=== PATIENT | male | born 1960 | race Caucasian/White ===

== ENCOUNTER 2017-02-01 11:52 | Emergency (ER) | payer MEDICAID ==
[~2017-02-01] VITALS: Ht 165.1 cm; Wt 68.0 kg
[~2017-02-01 11:52] MED LIST: AMOXIL250 MG PO
[2017-02-01 12:05] VITALS: BP 133/73
--- NOTE | 2017-02-01 12:13 | NUR ---
PATIENT PRESENTS TO ED WITH FULL BODY PAIN, PATIENT HAS OPEN SORES ON BOTH LEGS, STATES HE HAS SCROTAL PAIN WELL, PATIENT STATES HE HAD LOOSE STOOLS YESTERDAY X 2 DENIES V/D; SKIN IS PINK/WARM/DRY; AAOX4 WITH EVEN AND STEADY GAIT; PT DENIES ANY FEVER, CP, SOB, OR COUGH AT THIS TIME; PATIENT STATES PAIN OF 10/10 AT THIS TIME; VSS; PATIENT POSITIONED FOR COMFORT; HOB ELEVATED; BEDRAILS UP X2; BED DOWN. ER MD MADE AWARE OF PT STATUS.
[2017-02-01] MEDS ORDERED: KETOROLAC 60 MG/2 ML VIAL IM ONE (12:35)
--- NOTE | 2017-02-01 13:00 | NUR ---
PATIENT BECOMING DISRUPTIVE IN THE ED, YELLING PROFANTIES, STATING HE WANTS RUBBING ALCOHOL RUBBED ON HIS LEGS, STATES WE CAN GIVE HIM ALCOHOL SWABS AND HE CAN RUB IT ON HIS OWN LEGS IF HE WANTS, SWABS PROVIDED SECURITY AT BEDSIDE.
[2017-02-01 13:18] VITALS: BP 127/91
--- NOTE | 2017-02-01 13:20 | NUR ---
Patient discharged with v/s stable. Written and verbal after care instructions given and explained. LOCAL MEDICAL CLINIC INFORMATION OF WHERE TO FOLLOW UP GIVEN Patient alert, oriented and verbalized understanding of instructions. Ambulatory with steady gait. All questions addressed prior to discharge. ID band removed. Patient advised to follow up with PMD. Rx of MOTRIN, NORCO, KEFLEX, BACTRIM given. Patient educated on indication of medication including possible reaction and side effects. Opportunity to ask questions provided and answered.
== END 2017-02-01 13:20 | disposition home or self-care (01) ==
LOC: MED 12:01
DX: L03.116 Cellulitis of left lower limb (principal); L03.115 Cellulitis of right lower limb; N49.2 Inflammatory disorders of scrotum
CPT/HCPCS: 96372; 99283; J1885

== ENCOUNTER 2017-10-06 04:05 | Emergency (ER) | payer MEDICAID ==
[~2017-10-06] VITALS: Ht 167.6 cm; Wt 72.6 kg
[2017-10-06 04:19] VITALS: BP 139/88
--- NOTE | 2017-10-06 04:39 | NUR ---
DR DUBOIS AT BEDSIDE EVALUATING PT.
[2017-10-06] MEDS ORDERED: KETOROLAC 60 MG/2 ML VIAL IM ONE (04:40)
--- NOTE | 2017-10-06 04:44 | NUR ---
56/ M PRESENTS TO ER C/O MOUTH/DENTAL PAIN, PAIN TO BL ARMS WITH LESIONS/RASH, PAIN TO NECK WITH RASH. PMH HEP. C, METH USE. PT STATES HE THINKS HE WAS BIT BY SOMETHING TO CAUSE RASH TO BL ARMS, MULTIPLE OPEN WOUNDS NOTED TO BL ARMS, NO ACTIVE BLEEDING NOTED AT THIS TIME. PT STATES PAIN TO UPPER MOUTH AREA A 10/10, SHARP AND NON RADIATING. RED RASH NOTED TO POSTERIOR NECK. PER PT HE HAS USED METH IN PAST, PT DENIES USE AT THIS TIME. ER MD NOTIFIED OF PT STATUS, PT IN BED AT THIS TIME, COMFORT NEEDS MET.
[2017-10-06 05:30] VITALS: BP 139/88
--- NOTE | 2017-10-06 05:31 | NUR ---
Patient discharged with v/s stable. Written and verbal after care instructions given and explained. Patient alert, oriented and verbalized understanding of instructions. Ambulatory with steady gait. All questions addressed prior to discharge. ID band removed. Patient advised to follow up with PMD. Rx of mupirocin 2% given. Patient educated on indication of medication including possible reaction and side effects. Opportunity to ask questions provided and answered.Pt given homeless packet.
== END 2017-10-06 05:31 | disposition home or self-care (01) ==
LOC: MED 04:05
DX: R21 Rash and other nonspecific skin eruption (principal); R51 Headache; K08.89 Other specified disorders of teeth and supporting structures; Z88.8 Allergy status to other drugs, medicaments and biological substances
CPT/HCPCS: 96372; 99283; J1885

== ENCOUNTER 2018-05-22 11:07 | Emergency (ER) | payer MEDICAID ==
[~2018-05-22] VITALS: Ht 165.1 cm; Wt 70.3 kg
[2018-05-22 11:12] VITALS: BP 133/99
--- NOTE | 2018-05-22 11:15 | NUR ---
PT AMBULATED TO ER BED 08
--- NOTE | 2018-05-22 11:20 | NUR ---
57Y/M BIB SELF C/O RT UPPER TOOTH PAIN X 1 DAY. HAS DENTIST APPOINTMENT ON 05/27/18. DENIES FEVER OR N/V.AAOX4 WITH EVEN AND STEADY GAIT; PATIENT STATES PAIN OF 10/10 AT THIS TIME; VSS; PATIENT POSITIONED FOR COMFORT; HOB ELEVATED; BEDRAILS UP X1; BED DOWN. ER MD MADE AWARE OF PT STATUS.
--- NOTE | 2018-05-22 11:30 | NUR ---
Patient being evaluated by physician at bedside.
--- NOTE | 2018-05-22 11:58 | NUR ---
Patient discharged with v/s stable. Written and verbal after care instructions given and explained. Patient alert, oriented and verbalized understanding of instructions. Ambulatory with steady gait. All questions addressed prior to discharge. ID band removed. Patient advised to follow up with PMD. Rx of MOTRIN, TORADOL AND AMOXICILLIN given. Patient educated on indication of medication including possible reaction and side effects. Opportunity to ask questions provided and answered.
[2018-05-22 11:59] VITALS: BP 122/94
== END 2018-05-22 11:58 | disposition home or self-care (01) ==
LOC: MED 11:07
DX: K04.7 Periapical abscess without sinus (principal); R03.0 Elevated blood-pressure reading, without diagnosis of hypertension; Z88.6 Allergy status to analgesic agent
CPT/HCPCS: 99283

== ENCOUNTER 2018-09-09 09:09 | Emergency (ER) | payer MEDICAID ==
[~2018-09-09] VITALS: Ht 165.1 cm; Wt 69.9 kg
[2018-09-09 09:24] VITALS: BP 119/95
[2018-09-09] MEDS ORDERED: KETOROLAC 30 MG/ML VIAL IM ONE (10:45)
[2018-09-09 11:09] VITALS: BP 139/99
== END 2018-09-09 11:10 | disposition home or self-care (01) ==
LOC: MED 09:09
DX: S02.5XXA Fracture of tooth (traumatic), initial encounter for closed fracture (principal); F41.9 Anxiety disorder, unspecified; F32.9 Major depressive disorder, single episode, unspecified; K21.9 Gastro-esophageal reflux disease without esophagitis; Z88.5 Allergy status to narcotic agent; Z88.6 Allergy status to analgesic agent; Z76.0 Encounter for issue of repeat prescription; X58.XXXA Exposure to other specified factors, initial encounter; Y93.89 Activity, other specified; Y92.89 Other specified places as the place of occurrence of the external cause; Y99.8 Other external cause status
CPT/HCPCS: 96372; 99283; J1885

== ENCOUNTER 2018-09-28 08:43 | Emergency (ER) | payer MEDICAID ==
[~2018-09-28] VITALS: Ht 165.1 cm; Wt 74.8 kg
--- NOTE | 2018-09-28 08:49 | NUR ---
PATIENT AMBULATED TO BED 5 AT THIS TIME.
[2018-09-28 08:50] VITALS: BP 148/71
--- NOTE | 2018-09-28 08:56 | NUR ---
PATIENT PRESENTS TO ED FOR MEDICATION FOR ANTI DEPRESSION; DENIES AUDITORY /VISSUAL HALLUCINATIONS; DENIES SI/ HI. PT WAS PRESCRIBED W/ ZOLOFT BUT STOPS TAKING IT. DENIES N/V/D;PT STATES I JUST WANT SOME MEDICINE BETTER THAN ZOLOFT;SAFETY PRECAUTION INSTITUTED;VSS; PATIENT POSITIONED FOR COMFORT; HOB ELEVATED; BEDRAILS UP X2; BED DOWN. ER MD MADE AWARE OF PT STATUS.
[2018-09-28 09:09] VITALS: BP 148/71
--- NOTE | 2018-09-28 09:09 | NUR ---
Patient discharged with v/s stable. Written and verbal after care instructions given and explained. Patient alert, oriented and verbalized understanding of instructions. Ambulatory with to car. All questions addressed prior to discharge. ID band removed. Patient advised to follow up with PMD. Rx of PROZAC AND VISTARIL given. Patient educated on indication of medication including possible reaction and side effects. Opportunity to ask questions provided and answered.
== END 2018-09-28 09:09 | disposition home or self-care (01) ==
LOC: MED 08:43
DX: F32.9 Major depressive disorder, single episode, unspecified (principal); F41.9 Anxiety disorder, unspecified; F17.200 Nicotine dependence, unspecified, uncomplicated; K21.9 Gastro-esophageal reflux disease without esophagitis; Z88.5 Allergy status to narcotic agent; Z88.6 Allergy status to analgesic agent
CPT/HCPCS: 99284

== ENCOUNTER 2018-10-10 12:10 | Emergency (ER) | payer MEDICAID ==
[~2018-10-10] VITALS: Ht 165.1 cm; Wt 71.0 kg
[2018-10-10 12:24] VITALS: BP 126/102
[2018-10-10 14:04] VITALS: BP 126/102
== END 2018-10-10 14:04 | disposition home or self-care (01) ==
LOC: MED 12:10
DX: F41.9 Anxiety disorder, unspecified (principal); K21.9 Gastro-esophageal reflux disease without esophagitis; Z76.0 Encounter for issue of repeat prescription; Z88.5 Allergy status to narcotic agent
CPT/HCPCS: 99283

== ENCOUNTER 2018-11-04 10:12 | Emergency (ER) | payer MEDICAID ==
[~2018-11-04] VITALS: Ht 165.1 cm; Wt 74.8 kg
--- NOTE | 2018-11-04 10:21 | NUR ---
PT AMBULATED TO ER BED 08
[2018-11-04 10:26] VITALS: BP 122/90
--- NOTE | 2018-11-04 10:32 | NUR ---
PATIENT STATES HE WAS SEEN HER BY DR ROD AND WAS GIVEN A RX FOR VISTARIL AND PROSAC BUT HE ONLY GOT ENOUGH VISTARIL FOR 7 DAYS. STATES HE HAS AN APPOINTMENT WITH HIS DOCTOR NEXT WEEK BUT CANT WAIT. NO OTHER COMPLAINTS AT THIS TIME.
[2018-11-04] MEDS ORDERED: KETOROLAC 60 MG/2 ML VIAL IM ONE (10:50)
[2018-11-04 11:05] VITALS: BP 122/90
== END 2018-11-04 11:06 | disposition home or self-care (01) ==
LOC: MED 10:12
DX: R51 Headache (principal); Z76.0 Encounter for issue of repeat prescription; Z88.5 Allergy status to narcotic agent; K21.9 Gastro-esophageal reflux disease without esophagitis
CPT/HCPCS: 96372; 99283; J1885

== ENCOUNTER 2019-03-10 11:15 | Emergency (ER) | payer MEDICAID ==
[~2019-03-10] VITALS: Ht 167.6 cm; Wt 72.6 kg
[2019-03-10 12:04] VITALS: BP 128/89
--- NOTE | 2019-03-10 12:06 | NUR ---
PT BACK TO LOBBY AFTER TRIAGE, CONTINUE TO WAIT FOR AVAILABLE ROOM FOR MD LORD
--- NOTE | 2019-03-10 13:58 | NUR ---
DENIES ANY ACUTE DISTRESS---CONTINUES TO WAIT FOR AVAILABLE PROVIDER FOR EVAL
--- NOTE | 2019-03-10 14:55 | NUR ---
LIZ LORD PT AT CHAIRSIDE.
--- NOTE | 2019-03-10 14:56 | NUR ---
PT HAS NO CHIEF COMPLAINTS, REQUESTING A MED REFILL OF PROZAC 20 MG TWICE A DAY. PATIENT AWAKE AND ACTING APPROPRIATE AT THIS TIME WITH VSS. PLACED IN CHAIR D FOR EVAL.
[2019-03-10 15:26] VITALS: BP 121/75
--- NOTE | 2019-03-10 15:26 | NUR ---
Patient discharged with v/s stable. Written and verbal after care instructions given and explained. Patient alert, oriented and verbalized understanding of instructions. Ambulatory with steady gait. All questions addressed prior to discharge. ID band removed. Patient advised to follow up with PMD. Rx of FLUOXETINE given. Patient educated on indication of medication including possible reaction and side effects. Opportunity to ask questions provided and answered.
== END 2019-03-10 15:26 | disposition home or self-care (01) ==
LOC: MED 11:15
DX: F31.9 Bipolar disorder, unspecified (principal); Z76.0 Encounter for issue of repeat prescription; K21.9 Gastro-esophageal reflux disease without esophagitis; Z88.5 Allergy status to narcotic agent
CPT/HCPCS: 99283

== ENCOUNTER 2019-05-03 08:02 | Emergency (ER) | payer MEDICAID ==
[~2019-05-03] VITALS: Ht 165.1 cm; Wt 72.6 kg
[2019-05-03 08:15] VITALS: BP 121/78
--- NOTE | 2019-05-03 08:44 | NUR ---
Dr. Barger evaluating patient at bedside.
[2019-05-03] MEDS ORDERED: hydrOXYzine HCL 25 MG TAB PO ONE (08:50)
[2019-05-03] MEDS ORDERED: diphenhydrAMINE 50 MG/ML VIAL IM ONE (08:50)
[2019-05-03] MEDS ORDERED: KETOROLAC 60 MG/2 ML VIAL IM ONE (08:50)
--- NOTE | 2019-05-03 09:00 | NUR ---
PT BIB SELF C/O TWISTED NECK X 2 DAYS AGO WHILE LIFTING HEAVY STUFF AT WORK, DID NOT TAKE ANY MEDICATION FOR PAIN. DENIES N/V/D; SKIN IS PINK/WARM/DRY; AAOX4 WITH EVEN AND STEADY GAIT; PT DENIES ANY FEVER, CP, SOB, OR COUGH AT THIS TIME; PATIENT STATES PAIN OF 9/10 AT THIS TIME; VSS; PATIENT POSITIONED FOR COMFORT; HOB ELEVATED; BEDRAILS UP X1; BED DOWN. ER MD MADE AWARE OF PT STATUS.
[2019-05-03 10:26] VITALS: BP 121/86
--- NOTE | 2019-05-03 10:27 | NUR ---
Patient discharged with v/s stable. Written and verbal after care instructions given and explained. Pt's pain has been improved. Patient alert, oriented and verbalized understanding of instructions. Ambulatory with steady gait. All questions addressed prior to discharge. ID band removed. Patient advised to follow up with PMD. Rx of Vistaril and Prozac given. Patient educated on indication of medication including possible reaction and side effects. Opportunity to ask questions provided and answered.
== END 2019-05-03 10:27 | disposition home or self-care (01) ==
LOC: MED 08:02
DX: M43.6 Torticollis (principal); K21.9 Gastro-esophageal reflux disease without esophagitis; Z76.0 Encounter for issue of repeat prescription; Z88.5 Allergy status to narcotic agent
CPT/HCPCS: 96372; 99283; J1200; J1885